=== PATIENT | female | born 1965 ===

== ENCOUNTER → 2021-12-06 13:32 | Outpatient (CLI) | payer MEDICAID, SELFPAY ==
[2021-12-06 14:36] LABS: COVID19 -Nasal RAPID POSITIVE (Negative)
== END ==
PROVIDERS: Visit Provider Nurse Practitioner Family
DX: U07.1 COVID-19 (principal); Z20.822 Contact with and (suspected) exposure to COVID-19
CPT/HCPCS: 87635

== ENCOUNTER 2021-12-08 11:52 | Emergency (ER) | payer MEDICAID, SELFPAY ==
[2021-12-08 12:09] VITALS: BP 154/75; PULSE 99; RESP 14; TEMP 36.6; O2SAT 96; BMI 27.4
--- NOTE | 2021-12-08 12:21 | ED.DENTAL ---
HPI - Dental/Oral General Chief complaint: Dental/Oral Stated complaint: mouth abscess/covid pos Time Seen by Provider: 12/08/21 12:15 Source: patient Mode of arrival: Ambulatory Limitations: no limitations History of Present Illness HPI Narrative: This is a 56-year-old female comes emergency department with complaint of current COVID infection. Patient has had symptoms for 6 days. She has had fevers intermittently with some mild cough and fatigue and generally feeling unwell. She developed pain and swelling of her right cheek and dental area in the last day. She states she had a cracked tooth. She has had some intermittent issues but had significant worsening symptoms recently. She has tried topical ambulates all, swish and spit of fireball without any improvement and Tylenol p.o.. She denies other medical issues. No known drug allergies. She states she does smoke. Only occasional alcohol. She states remote use of illicit drugs but nothing recent. She does have a dentist she can follow up with but not until Friday and her pain was continuing to worsen with continued swelling so she presented today. She is unsure if her fevers are secondary to her COVID or the infection. She has had some nausea. She is denying any chest pain or shortness of breath. No persistent vomiting. No other GI or urinary symptoms. Related Data Previous Rx's Medication Instructions Recorded meloxicam 7.5 mg tablet 7.5 mg PO BID PRN #10 tab 12/08/21 penicillin V potassium 500 mg 500 mg PO Q6H 10 Days #40 tab 12/08/21 tablet Allergies Allergy/AdvReac Type Severity Reaction Status Date / Time No Known Drug Allergies Allergy Verified 12/08/21 12:14 Review of Systems Review of Systems ROS Unobtainable: All systems reviewed & are unremarkable except as noted in HPI and below Patient History Social History Smoking Status: Current every day smoker Smoking Status: Current every day smoker alcohol intake frequency: holidays/special occasions only Substance Use Type: does not use Exam Narrative Exam Narrative: GEN: well nourished, well appearing female, alert and oriented x 3, patient appears to be in mild distress. HEENT: Atraumatic, pupils are equal round reactive to light, extraocular movements are intact, nares are clear, TMs are clear with no fluid, there is no conjunctival pallor. Throat is clear without any exudates, erythema, tonsillar enlargement or uvular deviation. Patient has swelling of the right cheek, no obvious erythema there is a fullness. There is no warmth. Patient on dental exam does have a cracked tooth at tooth #13 with some swelling surrounding the area and appears to be soft tissue swelling of the inner cheek. Patient has multiple dental caries and missing teeth. HEART: Regular rate and rhythm without murmur, clicks, rubs. No carotid bruits, pulses are equal in upper and lower extremities LUNGS:Lungs clear to auscultation, no wheezes, rales, crackles, chest moves symmetrically ABD:bowel sounds normal, soft, non-tender, no guarding, rebound, rigidity, no masses noted, no hepatosplenomegaly MSCL: full range of motion, normal gait NEURO:CN 2-12 intact, sensation normal Initial Vital Signs Initial Vital Signs: Vital Signs Temperature 97.9 F 12/08/21 12:09 Pulse Rate 99 H 12/08/21 12:09 Respiratory Rate 14 12/08/21 12:09 Blood Pressure 154/75 H 12/08/21 12:09 Pulse Oximetry 96 12/08/21 12:09 Course Orders Ordered: Discontinued Medications Ketorolac Tromethamine (Ketorolac 30 Mg/Ml Vial) 30 mg IM NOW ONE Stop: 12/08/21 12:31 Last Admin: 12/08/21 13:17 Dose: 30 mg Documented by: ARLEY Penicillin V Potassium (Penicillin Vk 250 Mg Tablet) 500 mg PO NOW ONE Stop: 12/08/21 12:31 Last Admin: 12/08/21 13:17 Dose: 500 mg Documented by: ARLEY Vital Signs Vital signs: Vital Signs - 8 hr 12/08/21 12:09 12/08/21 13:24 Temperature 97.9 F Pulse Rate 99 H 107 H Respiratory Rate 14 17 Blood Pressure 154/75 H 162/79 H Pulse Oximetry 96 96 MDM - Dental/Oral MDM Narrative Medical decision making narrative: This is an unfortunate 56-year-old female who has a known COVID infection and for the past 6 days. She does not feel this is worsening but she has had dental pain and a cracked tooth and developed swelling and increasing pain at that site and her cheek. Patient has been trying [id number] medications without any improvement. Started on pen VK, meloxicam along with her Tylenol and we discussed that she needs to return if worsening symptoms. Patient feels comfortable with this plan all risk precautions discussed. Discharge Plan Departure Patient Disposition: Home Clinical Impression: Dental infection Instructions: Tooth Abscess Activity Restrictions/Additional Instructions: Follow up with a dentist. I hope your dental infection improves shortly and you start to feel much better from your COVID infection. Take antibiotics until completely gone. Make sure to take her 2nd dose of antibiotics later today. You may take Tylenol up to a 1000 mg every 8 hours and meloxicam or Mobic 1 tablet twice daily as needed for pain. Prescription sent to [facility] in [place]. Please return if you are having persistent fevers increasing swelling, redness or pain in her face, teeth, swelling of your tongue, airway, persistent vomiting or other new or concerning symptoms. Prescriptions: New penicillin V potassium 500 mg tablet 500 mg PO Q6H 10 Days Qty: 40 0RF meloxicam 7.5 mg tablet 7.5 mg PO BID PRN (Reason: pain) Qty: 10 0RF
[2021-12-08] MEDS: KETOROLAC 30 MG/ML VIAL IM (13:17)
[2021-12-08] MEDS: PENICILLIN VK 250 MG TABLET 500 MG PO (13:17)
[2021-12-08 13:24] VITALS: BP 162/79; PULSE 107; RESP 17; O2SAT 96
== END 2021-12-08 13:26 | disposition home or self-care (01) ==
PROVIDERS: Emergency Provider Emergency Medicine
DX: K04.7 Periapical abscess without sinus (principal); F17.200 Nicotine dependence, unspecified, uncomplicated
CPT/HCPCS: 96372; 99283; J1885